=== PATIENT | female | born 1990 | race Caucasian/White ===

== ENCOUNTER 2021-11-19 16:29 | Outpatient (REF) | payer OTHER, SELFPAY ==
--- NOTE | 2021-11-19 15:20 | PAPFT_PTH ---
PATIENT: Talita Galvez LOC: [facility] U#:[id number] AGE/SX: 31/F ROOM: RE11/19/[address]: Bar Wall : 1990 BED: DIS: 11/19/2021 SPEC #: [id number] RECD: 11/22/21 13:08 STATUS: SOHEILA REQ #: [id number] TIFFANIE: 11/19/21 15:[address]: Bar Wall DEPT: PENDING SALE TO [facility] Cytology RECD BY: Talita Edwards ENTERED: 11/22/21 13:08 SP TYPE: PAPFT OTHR DR: Troy Puckett Tissues: 1 - CX/ENDOCX FOR PAP SMEARS Procedures: PAP THIN PREP/[facility] Screening HPV DNA PROBE Comments: [id number] (CHLAMYDIA/GC)
[2021-11-23 15:12] LABS: Chlamydia Result Negative (Negative); GC Result Negative (Negative)
== END 2021-11-19 16:30 | disposition home or self-care (01) ==
LOC: NCHCN 16:29
PROVIDERS: Visit Provider Family Medicine
DX: Z11.3 Encounter for screening for infections with a predominantly sexual mode of transmission (principal); Z12.4 Encounter for screening for malignant neoplasm of cervix; Z11.51 Encounter for screening for human papillomavirus (HPV)
CPT/HCPCS: 87491; 87591; 88142; 87624